=== PATIENT | female | born 1960 | race Caucasian/White ===

== ENCOUNTER 2021-07-01 15:52 | Inpatient (IN) | payer OTHER, SELFPAY ==
[~2021-07-01] VITALS: Ht 170.2 cm; Wt 112.9 kg
[2021-07-01 15:55] VITALS: BP_SYST 98
--- NOTE | 2021-07-01 16:00 | NUR ---
TRIAGED IN OUTSIDE TRIAGE TENT, AWAITING ER BED AVAILABILITY
--- NOTE | 2021-07-01 16:11 | NUR ---
PT BROUGHT IN BY WHEELCHAIR, PLACED IN ROOM #4
[2021-07-01] MEDS ORDERED: NACL 0.9% 1,000 ML IV ONE (16:30)
--- NOTE | 2021-07-01 17:02 | NUR ---
61 YEARS OLD FEMALE ALERT, ORIENTED X4 PRESENTS TO ER WITH GEN WEAKNESS, DENIES PAIN NO SOB NO CP.
[2021-07-01 17:40] LABS: BASOPHILS % (AUTO) 0.2 % (0.0-2.0); EOSINOPHILS % (AUTO) 0.1 % (0.0-4.0); HEMATOCRIT 40.2 % (36-48); HEMOGLOBIN 13.4 g/dL (12.0-16.0); LYMPHOCYTES # (AUTO) 0.4 K/uL (1.0-5.5); LYMPHOCYTES % (AUTO) 9.6 % (20.5-51.5); MEAN CORPUSCULAR HEMOGLOBIN 30 pg (27-31); MEAN CORPUSCULAR HGB CONC 33 % (32-36); MEAN CORPUSCULAR VOLUME 89 fL (79.0-98.0); MONOCYTES # (AUTO) 0.5 K/uL (0.0-1.0); MONOCYTES % (AUTO) 10.7 % (1.7-9.3); NEUTROPHILS # (AUTO) 3.6 K/uL (1.8-7.7); NEUTROPHILS % (AUTO) 79.4 % (40.0-70.0); PLATELET COUNT (AUTO) 160 K/uL (130-430); RED BLOOD CELL COUNT(AUTO) 4.54 MIL/uL (4.2-6.2); RED CELL DISTRIBUTION WIDTH 12.6 % (9.0-15.0); WHITE BLOOD COUNT (AUTO) 4.5 K/uL (4.8-10.8)
[2021-07-01 18:06] LABS: CALCIUM 8.4 mg/dL (8.4-11.0); CREATININE 1.4 mg/dL (0.55-1.30)
--- NOTE | 2021-07-01 18:08 | NUR ---
PATIENT RESTING NO ACUTE DISTRESS VITAL STABLE.
[2021-07-01 18:23] LABS: ALBUMIN 2.2 g/dL (3.4-4.8); TOTAL BILIRUBIN 0.7 mg/dL (0.0-1.0)
--- NOTE | 2021-07-01 18:27 | NUR ---
CABLE MAKER REPORTS COVID POSITIVE DR EMMANUEL NOTIFIED.
[2021-07-01] MEDS ORDERED: cefTRIAXone 1 GM IVPB PREMIX 50 ML IV ONE (19:00)
[2021-07-01] MEDS ORDERED: AZITHROMYCIN 250 MG TABLET PO ONE (19:00)
[2021-07-01] MEDS ORDERED: INSULIN REGULAR, HUMAN 10 UNITS/0.1 ML INJ IVP ONE (19:00)
[2021-07-01] MEDS ORDERED: ENOXAPARIN SODIUM 120 MG/0.8 ML SYRINGE SUBCUT ONE (19:30)
[2021-07-01] MEDS ORDERED: ASPIRIN 325 MG TABLET PO ONE (19:30)
--- NOTE | 2021-07-01 19:47 | NUR ---
S/W lab for critical lab Troponin of 99 made aware
--- NOTE | 2021-07-01 19:52 | NUR ---
Received report from Registry 68 pt resting comfortably in bed AOX4 VSS NAD at this time Will continue to monitor
--- NOTE | 2021-07-01 19:54 | NUR ---
S/W Marlon from Lab for Critical troponin value 99 made aware
--- NOTE | 2021-07-01 20:54 | NUR ---
Patient will be admitted to care of Dr. Mar. Admitted to tele unit.
[2021-07-01] MEDS ORDERED: ENOXAPARIN SODIUM 120 MG/0.8 ML SYRINGE ONE (22:19)
[2021-07-01] MEDS ORDERED: ASPIRIN 325 MG TABLET ONE (22:19)
--- NOTE | 2021-07-01 22:38 | NUR ---
CONSULTATION PAGED/CALLED Reason for Consultation: COVID PNA Person Who was Notified: SAEID Consulting Physician: HUGO Glucose And Syrup Weigher Specialty: RESPIRATORY Ordering Physician: HENRY
[2021-07-01] MEDS ORDERED: ACETAMINOPHEN 325 MG TABLET PO PRN (22:45)
--- NOTE | 2021-07-01 22:46 | NUR ---
Admitted to telemetry unit. Will go to room 118b. Belongings list completed. Complete and up to date summary report printed. SBAR report to be given at bedside with opportunity for questions. AOX4 VSS RN at bedside
--- NOTE | 2021-07-01 22:48 | NUR ---
RECEIVED PT FR ED VIA [facility]. ED NURSE GEORGE LOGAN GAVE REPORT VIA BEDSIDE. ADMISSION ASSESSMENT PERFORMED. THROUGH HEAD TO TOE ASSESSMENT DONE. PT IS AWAKE,ALERT & ORIENTED X 4. NOT IN ANY ACUTE DISTRESS/SOB. RESP EVEN & UNLABORED. AFEBRILE. DENIES PAIN. PT IS COVID +, ON DROPLET PRECAUTIONS OBSERVED & PRACTICED. W/ 20G IV SL ON LEFT HAND INTACT & PATENT. B & B CONTINENT. ABLE TO AMBULATE W/ ASSISTIVE DEVICE (CANE) BUT DUE TO GENERALIZED WEAKNESS, BEDSIDE COMMODE PROVIDED AND INDIVIDUALIZED FALL PREVENTION INITIATED. SAFE & HAZARD FREE ENVIRONMENT PROVIDED. SKIN IS INTACT. PER PT, EMERGENCY CONTACT IS HER SPOUSE WHICH IS ALSO ADMITTED IN THE SAME UNIT, DIFFERENT ROOM#. INFORMED PT THAT SPUTUM SPECIMEN NEEDS TO BE COLLECTED. PT HASN'T BEEN ABLE TO COUGH UP ANY SECRETIONS AT THE MOMENT. WILL CON'T TO MONITOR. HOME MEDS INFORMATION OBTAINED FROM PATIENT.BELONGINGS INVENTORY DONE. ORIENTED TO ROOM, BED CONTROLS AND EQUIPMENT & USE OF CALL LIGHT. NEEDS ANTICIPATED. PT MADE COMFORTABLE. CALL LIGHT W/IN EASY REACH.
--- NOTE | 2021-07-01 22:59 | NUR ---
CONSULTATION PAGED/CALLED Reason for Consultation: ELEVATED TROPONIN Person Who was Notified: FLORENTINO Consulting Physician: STEPHANIE Marketing Automation Specialist Specialty: CARDIOLOGY Ordering Physician: HENRY
[2021-07-01] MEDS ORDERED: ALBUTEROL SULFATE 0.083% 2.5 MG/3 ML VIAL.NEB INH SCH (23:00)
[2021-07-01] MEDS ORDERED: IPRATROPIUM BROM 0.5 MG/2.5 ML VIAL.NEB (ATROVENT) INH SCH (23:00)
--- NOTE | 2021-07-01 23:04 | NUR ---
CONSULTATION PAGED/CALLED Reason for Consultation: COVID Person Who was Notified: YADIEL Consulting Physician: MARY Match Up Person Specialty: ID Ordering Physician: HENRY
--- NOTE | 2021-07-01 23:05 | NUR ---
CONSULTATION PAGED/CALLED Reason for Consultation: GLEN Person Who was Notified: YADIEL Consulting Physician: LEOBARDO Machine Records Units Supervisor Specialty: RENAL Ordering Physician: HENRY
[2021-07-02] VITALS (7 sets, daily range): BP systolic 129–144
[2021-07-02] MEDS: DEXAMETHASONE SOD PHOSPHATE 10 MG/ML VIAL IVP SCH ×2 (00:40→23:41)
[2021-07-02] MEDS ORDERED: AMLO-61 PO (02:26)
[2021-07-02] MEDS ORDERED: LISI40TA13 PO (02:26)
[2021-07-02] MEDS ORDERED: SERT-436 PO (02:26)
[2021-07-02] MEDS ORDERED: PRAV10TA PO (02:26)
[2021-07-02] MEDS ORDERED: INSNLG7030 SUBCUT (02:26)
[2021-07-02] MEDS ORDERED: NEU300 PO (02:26)
[2021-07-02] MEDS ORDERED: SSREG SUBCUT (02:29)
[2021-07-02] MEDS ORDERED: NORMAL SALINE 5 ML DISP.SYRIN IVF SCH (06:00)
[2021-07-02] MEDS: NORMAL SALINE 5 ML DISP.SYRIN IVF SCH ×3 (06:02→22:09)
--- NOTE | 2021-07-02 06:35 | NUR ---
BLOOD SUGAR CHECKED 452 MG/DL.PT IS AWAKE,ALERT & ORIENTED X 4 & NO OBVIOUS SIGNS OF HIGH BLOOD SUGAR. NO POLYDIPSIA, POLYPHAGIA, POLYURIA. ZECHARIAH REGALADO.
--- NOTE | 2021-07-02 06:45 | NUR ---
0645 DR FIGUEROA CALLED BACK W/ NEW ORDER TO ADMINISTER HUMULIN R INSULIN PER SLIDING SCALE. SO 10UNITS FOR BS= 452MG/DL NOTED & CARRIED.
[2021-07-02 06:50] LABS: BASOPHILS % (AUTO) 0.6 % (0.0-2.0); HEMATOCRIT 38.6 % (36-48); HEMOGLOBIN 13.1 g/dL (12.0-16.0); LYMPHOCYTES # (AUTO) 0.3 K/uL (1.0-5.5); LYMPHOCYTES % (AUTO) 8.2 % (20.5-51.5); MEAN CORPUSCULAR HEMOGLOBIN 30 pg (27-31); MEAN CORPUSCULAR HGB CONC 34 % (32-36); MEAN CORPUSCULAR VOLUME 89 fL (79.0-98.0); MONOCYTES # (AUTO) 0.2 K/uL (0.0-1.0); NEUTROPHILS # (AUTO) 3.6 K/uL (1.8-7.7); NEUTROPHILS % (AUTO) 86.2 % (40.0-70.0); PLATELET COUNT (AUTO) 164 K/uL (130-430); RED BLOOD CELL COUNT(AUTO) 4.35 MIL/uL (4.2-6.2); RED CELL DISTRIBUTION WIDTH 12.6 % (9.0-15.0); WHITE BLOOD COUNT (AUTO) 4.2 K/uL (4.8-10.8)
[2021-07-02 07:12] LABS: C-REACTIVE PROTEIN QUANT 11.8 mg/dL (0-0.5); CALCIUM 8.3 mg/dL (8.4-11.0); CREATININE 1.25 mg/dL (0.55-1.30); PHOSPHORUS 2.8 mg/dL (2.7-4.5); POTASSIUM 4.2 mmol/L (3.5-5.1); TOTAL BILIRUBIN 0.5 mg/dL (0.0-1.0)
[2021-07-02] MEDS: INSULIN REGULAR, HUMAN 100 UNITS/ML, 10 ML VIAL (humuLIN R) SUBCUT PRN ×3 (07:14→17:53)
[2021-07-02] MEDS ORDERED: DEXTROSE 50%-WATER 50 ML DISP.SYRIN IVP PRN (07:15)
[2021-07-02] MEDS ORDERED: D5W 1,000 ML IV PRN (07:15)
[2021-07-02] MEDS ORDERED: GLUCOSE (DEXTROSE) ORAL GEL -Adults PO PRN (07:15)
--- NOTE | 2021-07-02 07:25 | NUR ---
0647started calling pharmacy to verify insulin orders but in house pharmacy not picking up. 0649 called pharmacy after hrs and spoke w/ Armen and according to him, he could not be of any help and he can't verify the order coz they're only operation until 6:30 am and i would have to contact inhouse pharmacy. 0650 my colleagues and I have been trying to contact pharmacy but not picking up. 0703 pharmacy finally picked up and verified insulin orders administered 12units as ordered. pt still awake,alert & oriented x 4. endorsed to upcoming shift.
[2021-07-02] MEDS: ENOXAPARIN SODIUM 40 MG/0.4 ML SYRINGE SUBCUT SCH (08:40)
[2021-07-02] MEDS: ALBUTEROL MDI INHALATION 8 GM INH INH SCH ×2 (11:45→16:00)
[2021-07-02 15:15] LABS: ERYTHROCYTE SEDIMENTATION RATE 81 MM/HR (0-20)
[2021-07-02] MEDS: GABAPENTIN 300 MG CAPSULE PO SCH ×2 (15:42→21:00)
--- NOTE | 2021-07-02 16:51 | NUR ---
CONSULTATION: REASON FOR CONSULT: ELEVATED BLOOD SUGAR CONSULTING PHYSICIAN: SALVADOR-SAYED ORDERED BY: MARK SPOKE TO DR FRANCO-SAYED ABOUT THE CONSULT AND IS AWARE AND WILL STOP BYE TO SEE THE PATIENT
--- NOTE | 2021-07-02 19:50 | NUR ---
Didn't get the full report form the previous shift since this wasn't the assisgned room for my shift. Pt is alert and oriented x 4. Patient complained about episode of coughing and some chest pain.
--- NOTE | 2021-07-02 20:50 | NUR ---
input the insulin sliding scale on the system and the long acting in the system
[2021-07-02] MEDS: cefTRIAXone 1 GM IVPB PREMIX 50 ML IV SCH (20:51)
[2021-07-02] MEDS: ASCORBIC ACID 500 MG TABLET PO SCH (21:00)
[2021-07-02] MEDS: AZITHROMYCIN 500 MG in NS 250 ML IV SCH (21:24)
[2021-07-02] MEDS: ONDANSETRON HCL 4 MG/2 ML VIAL IVP PRN (21:43)
[2021-07-02] MEDS: INSULIN GLARGINE 100 UNITS/ML 10 ML VIAL SUBCUT SCH (22:05)
--- NOTE | 2021-07-02 23:15 | NUR ---
Patient was complaining about being hungry, sandwich and a small pudding was given. Pt was ate most of it.
[2021-07-03] VITALS: BP_SYST 146
--- NOTE | 2021-07-03 04:08 | NUR ---
came to patient room check vital sign Bp 136/64 pulse is 98 T 97.2 o2 98 and RR18 patient is resting. No sign of distress.
[2021-07-03] MEDS: NORMAL SALINE 5 ML DISP.SYRIN IVF SCH ×3 (04:26→21:03)
--- NOTE | 2021-07-03 06:00 | NUR ---
Pt blood sugar at 0600 was [address]. I notified the DR. MARIA GUADALUPE Navarro AL-SAYED for the BS result and waiting to response. please follow up
[2021-07-03] MEDS: INSULIN LISPRO SLIDING SCALE 100 UNITS/ML VIAL (humaLOG) SUBCUT PRN ×4 (06:28→21:26)
[2021-07-03] MEDS: INSULIN Lispro 100 UNITS/ML VIAL (humaLOG) SUBCUT SCH ×3 (06:42→17:21)
--- NOTE | 2021-07-03 06:59 | NUR ---
Patient still concerns about the non productive coughing and found no meds on the mars, please follow up with
[2021-07-03] MEDS: BUDESONIDE 0.5 MG/2 ML AMPUL.NEB INH SCH (07:00)
[2021-07-03] MEDS: ALBUTEROL MDI INHALATION 8 GM INH INH SCH ×5 (07:25→23:00)
[2021-07-03 08:00] VITALS: BP_SYST 144
[2021-07-03] MEDS: ATORVASTATIN 20 MG TABLET PO SCH (08:25)
[2021-07-03] MEDS: SERTRALINE HCL 50 MG TABLET PO SCH (08:25)
[2021-07-03] MEDS: ASPIRIN 81 MG TAB.CHEW PO SCH (08:25)
[2021-07-03] MEDS: ASCORBIC ACID 500 MG TABLET PO SCH ×2 (08:25→21:02)
[2021-07-03] MEDS: ENOXAPARIN SODIUM 40 MG/0.4 ML SYRINGE SUBCUT SCH (08:26)
[2021-07-03] MEDS: CHOLECALCIFEROL (VITAMIN D3) 5,000 UNIT TABLET PO SCH (08:26)
[2021-07-03] MEDS: GABAPENTIN 300 MG CAPSULE PO SCH ×3 (08:26→21:02)
[2021-07-03] MEDS: INSULIN GLARGINE 100 UNITS/ML 10 ML VIAL SUBCUT SCH ×2 (08:27→21:34)
[2021-07-03] MEDS ORDERED: PRAVASTATIN SODIUM 10 MG TABLET (PRAVACHOL) PO SCH (09:00)
[2021-07-03] MEDS ORDERED: NITROGLYCERIN 0.4 MG TAB.SUBL SL PRN (09:45)
[2021-07-03] MEDS ORDERED: guaiFENesin/DEXTROMETHORPHAN 1 EACH TAB.ER.12H PO ONE (10:30)
[2021-07-03 10:44] LABS: POTASSIUM 3.4 mmol/L (3.5-5.1)
[2021-07-03 10:45] LABS: CALCIUM 8.6 mg/dL (8.4-11.0); CREATININE 1.15 mg/dL (0.55-1.30)
--- NOTE | 2021-07-03 10:48 | NUR ---
PAGED DR BROWN FOR TROPONIN LEVEL
[2021-07-03] MEDS ORDERED: POTASSIUM CHLORIDE 20 MEQ TAB.PRT.SR PO ONE (11:00)
[2021-07-03 12:00] VITALS: BP_SYST 136
[2021-07-03 13:21] LABS: HEMATOCRIT 38.7 % (36-48); HEMOGLOBIN 13.2 g/dL (12.0-16.0); RED BLOOD CELL COUNT(AUTO) 4.41 MIL/uL (4.2-6.2)
[2021-07-03 13:22] LABS: BASOPHILS % (AUTO) 0.3 % (0.0-2.0); LYMPHOCYTES # (AUTO) 0.3 K/uL (1.0-5.5); LYMPHOCYTES % (AUTO) 9.4 % (20.5-51.5); MEAN CORPUSCULAR HEMOGLOBIN 30 pg (27-31); MEAN CORPUSCULAR HGB CONC 34 % (32-36); MEAN CORPUSCULAR VOLUME 88 fL (79.0-98.0); MONOCYTES # (AUTO) 0.1 K/uL (0.0-1.0); MONOCYTES % (AUTO) 2.7 % (1.7-9.3); NEUTROPHILS # (AUTO) 3.1 K/uL (1.8-7.7); NEUTROPHILS % (AUTO) 87.6 % (40.0-70.0); PLATELET COUNT (AUTO) 210 K/uL (130-430)
[2021-07-03] MEDS ORDERED: INSULIN NPH 100 UNITS/ML 10 ML VIAL SUBCUT ONE (13:30)
[2021-07-03 13:41] LABS: WHITE BLOOD COUNT (AUTO) 3.5 K/uL (4.8-10.8)
[2021-07-03 16:00] VITALS: BP_SYST 130
[2021-07-03 20:00] VITALS: BP_SYST 134
[2021-07-03] MEDS: cefTRIAXone 1 GM IVPB PREMIX 50 ML IV SCH (21:01)
[2021-07-03] MEDS: AZITHROMYCIN 500 MG in NS 250 ML IV SCH (21:01)
[2021-07-03] MEDS: ONDANSETRON HCL 4 MG/2 ML VIAL IVP PRN (21:04)
[2021-07-03] MEDS: guaiFENesin/DEXTROMETHORPHAN 1 EACH TAB.ER.12H PO SCH (21:38)
[2021-07-03] MEDS: DEXAMETHASONE SOD PHOSPHATE 10 MG/ML VIAL IVP SCH (22:42)
[2021-07-04] MEDS: LORazepam 2 MG/ML VIAL IVP PRN ×2 (00:23→23:32)
[2021-07-04 01:50] VITALS: BP_SYST 127
[2021-07-04] MEDS: ALBUTEROL MDI INHALATION 8 GM INH INH SCH ×6 (03:00→22:19)
[2021-07-04] MEDS: NORMAL SALINE 5 ML DISP.SYRIN IVF SCH ×3 (06:00→22:00)
[2021-07-04] MEDS: BUDESONIDE 0.5 MG/2 ML AMPUL.NEB INH SCH ×2 (07:00→19:00)
--- NOTE | 2021-07-04 07:18 | NUR ---
Assumed care last night. A/O x 4. On room air. Satig well above 94%. Antibiotics given. BG checked and treated per MD orders. A snack provided. A little anxious. Ativan given. Did not want to receive breathing treatment thereafter till in the morning. She wanted to sleep in. Request was honored. RT notified not to go in. Care has been endorsed to AM RN.
[2021-07-04 08:00] VITALS: BP_SYST 143
--- NOTE | 2021-07-04 08:00 | NUR ---
Morning Notes: Pt A/Ox4 resting in bed. NO s/s of respiratory or cardiac distress. IV site clean, dry and intact. VVS, Fall, safety, and isolation precautions in place, call light with in reach, will continue to monitor.
[2021-07-04] MEDS: INSULIN Lispro 100 UNITS/ML VIAL (humaLOG) SUBCUT SCH ×3 (09:10→17:12)
[2021-07-04] MEDS: INSULIN LISPRO SLIDING SCALE 100 UNITS/ML VIAL (humaLOG) SUBCUT PRN ×3 (09:11→17:20)
[2021-07-04] MEDS: ENOXAPARIN SODIUM 40 MG/0.4 ML SYRINGE SUBCUT SCH (09:13)
[2021-07-04] MEDS: INSULIN GLARGINE 100 UNITS/ML 10 ML VIAL SUBCUT SCH ×2 (09:13→21:57)
[2021-07-04] MEDS: guaiFENesin/DEXTROMETHORPHAN 1 EACH TAB.ER.12H PO SCH ×2 (09:14→21:44)
[2021-07-04] MEDS: SERTRALINE HCL 50 MG TABLET PO SCH (09:15)
[2021-07-04] MEDS: CHOLECALCIFEROL (VITAMIN D3) 5,000 UNIT TABLET PO SCH (09:15)
[2021-07-04] MEDS: ATORVASTATIN 20 MG TABLET PO SCH (09:15)
[2021-07-04] MEDS: ASPIRIN 81 MG TAB.CHEW PO SCH (09:15)
[2021-07-04] MEDS: GABAPENTIN 300 MG CAPSULE PO SCH ×3 (09:16→21:44)
[2021-07-04] MEDS: ASCORBIC ACID 500 MG TABLET PO SCH ×2 (09:16→21:44)
--- NOTE | 2021-07-04 09:36 | NUR ---
Page AL-Sayed: Paged Dr. Saucedo-Sayed for BG of 408. Pt VVS, no s/s of distress. Gave scheduled Humalog 5 units and Lantus 30 units, and covered with 12 units Humalog.
[2021-07-04 10:17] LABS: CALCIUM 8.9 mg/dL (8.4-11.0); CREATININE 1.17 mg/dL (0.55-1.30)
[2021-07-04 10:22] LABS: BASOPHILS # (AUTO) 0.1 K/uL (0.0-0.2); BASOPHILS % (AUTO) 1.4 % (0.0-2.0); EOSINOPHILS % (AUTO) 0.5 % (0.0-4.0); HEMATOCRIT 40.5 % (36-48); HEMOGLOBIN 13.5 g/dL (12.0-16.0); LYMPHOCYTES # (AUTO) 0.3 K/uL (1.0-5.5); LYMPHOCYTES % (AUTO) 5.5 % (20.5-51.5); MEAN CORPUSCULAR HEMOGLOBIN 30 pg (27-31); MEAN CORPUSCULAR HGB CONC 33 % (32-36); MEAN CORPUSCULAR VOLUME 89 fL (79.0-98.0); MONOCYTES # (AUTO) 0.1 K/uL (0.0-1.0); MONOCYTES % (AUTO) 2.6 % (1.7-9.3); PLATELET COUNT (AUTO) 224 K/uL (130-430); RED BLOOD CELL COUNT(AUTO) 4.57 MIL/uL (4.2-6.2); RED CELL DISTRIBUTION WIDTH 12.7 % (9.0-15.0)
[2021-07-04 10:43] LABS: WHITE BLOOD COUNT (AUTO) 5.5 K/uL (4.8-10.8)
[2021-07-04 10:55] LABS: C-REACTIVE PROTEIN QUANT 4.1 mg/dL (0-0.5)
[2021-07-04] MEDS ORDERED: INSULIN NPH 100 UNITS/ML 10 ML VIAL SUBCUT ONE (11:00)
[2021-07-04 11:31] LABS: ERYTHROCYTE SEDIMENTATION RATE 73 MM/HR (0-20)
--- NOTE | 2021-07-04 11:55 | NUR ---
Nutrition Update Josiah Scale 15 noted. Pt admitted for COVID, pneumonia. Diet: cardiac BMI: 39 kg/m2 RD to follow per nutrition care standards.
[2021-07-04 12:00] VITALS: BP_SYST 126
--- NOTE | 2021-07-04 13:01 | NUR ---
Page Dr. Saucedo-Sayed: Paged Dr. DelarosaSayed for BG of 533, gave ordered Humulin N 30 units, and gave Humalog 10 units, and Humalog 12 units of coverage.
[2021-07-04 16:00] VITALS: BP_SYST 138
--- NOTE | 2021-07-04 18:56 | NUR ---
Closing notes: Pt A/Ox4 resting in bed. NO s/s of respiratory or cardiac distress. IV site clean, dry and intact. VVS, Fall, safety, and isolation precautions in place, call light with in reach, will endorse to plastic fixture builder.
--- NOTE | 2021-07-04 19:40 | NUR ---
Assumed care. A/O x 4. BG have remained high for the most of the day. Adjustments in insulin administration has been made y the paperhanger apprentice. We shall govern ourselves accordingly adhering to the set plan of treatment. Will be administering the antibiotics in a few minutes.
--- NOTE | 2021-07-04 19:43 | NUR ---
Dietitian Recommendations * Cardiac, CCHO standard carb-60 gm diet SARWAT, RD Please refer to Nutrition Assessment for details. Addendum: 07/04/21 at [address] Amended: Links added.
[2021-07-04 20:00] VITALS: BP_SYST 142
[2021-07-04] MEDS: cefTRIAXone 1 GM IVPB PREMIX 50 ML IV SCH (21:43)
[2021-07-04] MEDS: AZITHROMYCIN 500 MG in NS 250 ML IV SCH (21:44)
[2021-07-04] MEDS: DEXAMETHASONE SOD PHOSPHATE 10 MG/ML VIAL IVP SCH (22:18)
[2021-07-05] VITALS (9 sets, daily range): BP systolic 129–176
[2021-07-05] MEDS: ALBUTEROL MDI INHALATION 8 GM INH INH SCH ×5 (02:59→19:47)
--- NOTE | 2021-07-05 03:41 | NUR ---
Assumed care. A/O x 4. On telemetry. SR. In no acute distress respiratory or otherwise. All PM were administered. Blood glucose = 105. No coverage needed. Lantus 45 units have been given. A snack has been given. Snack has been consumed 100%. Will continue to monitor. She has requested to be assisted to the bathroom not so long ago. Bed linens have been changed. Gown has been changed. Pillow cases have been changed. She has requested for a sandwich. Prior to giving it to her, BG checked = 108. Will continue to monitor.
[2021-07-05] MEDS: NORMAL SALINE 5 ML DISP.SYRIN IVF SCH ×2 (05:23→12:01)
[2021-07-05] MEDS: INSULIN Lispro 100 UNITS/ML VIAL (humaLOG) SUBCUT SCH ×3 (07:00→16:49)
[2021-07-05] MEDS: BUDESONIDE 0.5 MG/2 ML AMPUL.NEB INH SCH (07:00)
[2021-07-05 08:10] LABS: BASOPHILS % (AUTO) 0.2 % (0.0-2.0); EOSINOPHILS % (AUTO) 0.1 % (0.0-4.0); HEMATOCRIT 35.3 % (36-48); LYMPHOCYTES # (AUTO) 0.6 K/uL (1.0-5.5); LYMPHOCYTES % (AUTO) 7.5 % (20.5-51.5); MEAN CORPUSCULAR HEMOGLOBIN 30 pg (27-31); MEAN CORPUSCULAR HGB CONC 34 % (32-36); MEAN CORPUSCULAR VOLUME 88 fL (79.0-98.0); MONOCYTES # (AUTO) 0.3 K/uL (0.0-1.0); MONOCYTES % (AUTO) 3.5 % (1.7-9.3); NEUTROPHILS # (AUTO) 6.6 K/uL (1.8-7.7); NEUTROPHILS % (AUTO) 88.7 % (40.0-70.0); PLATELET COUNT (AUTO) 225 K/uL (130-430); RED BLOOD CELL COUNT(AUTO) 4.01 MIL/uL (4.2-6.2); RED CELL DISTRIBUTION WIDTH 12.8 % (9.0-15.0)
[2021-07-05 08:12] LABS: ALBUMIN 1.9 g/dL (3.4-4.8); C-REACTIVE PROTEIN QUANT 2.2 mg/dL (0-0.5); CALCIUM 8.3 mg/dL (8.4-11.0); CREATININE 1.16 mg/dL (0.55-1.30); POTASSIUM 4.2 mmol/L (3.5-5.1); TOTAL BILIRUBIN 0.3 mg/dL (0.0-1.0)
[2021-07-05] MEDS: INSULIN GLARGINE 100 UNITS/ML 10 ML VIAL SUBCUT SCH (08:23)
[2021-07-05] MEDS: ATORVASTATIN 20 MG TABLET PO SCH (08:38)
[2021-07-05] MEDS: GABAPENTIN 300 MG CAPSULE PO SCH ×2 (08:38→14:21)
[2021-07-05] MEDS: CHOLECALCIFEROL (VITAMIN D3) 5,000 UNIT TABLET PO SCH (08:38)
[2021-07-05] MEDS: SERTRALINE HCL 50 MG TABLET PO SCH (08:38)
[2021-07-05] MEDS: ASCORBIC ACID 500 MG TABLET PO SCH (08:38)
[2021-07-05] MEDS: ASPIRIN 81 MG TAB.CHEW PO SCH (08:38)
[2021-07-05] MEDS: guaiFENesin/DEXTROMETHORPHAN 1 EACH TAB.ER.12H PO SCH (08:38)
[2021-07-05] MEDS: ENOXAPARIN SODIUM 40 MG/0.4 ML SYRINGE SUBCUT SCH (08:43)
[2021-07-05 09:44] LABS: WHITE BLOOD COUNT (AUTO) 7.5 K/uL (4.8-10.8)
[2021-07-05 11:03] LABS: ERYTHROCYTE SEDIMENTATION RATE 60 MM/HR (0-20)
[2021-07-05] MEDS: INSULIN LISPRO SLIDING SCALE 100 UNITS/ML VIAL (humaLOG) SUBCUT PRN (12:01)
--- NOTE | 2021-07-05 14:35 | NUR ---
Note Pt went to MRI dept for MRI of head/brain via wheelchair, now back in room.
[2021-07-05] MEDS ORDERED: APIX2.5T PO (15:19)
[2021-07-05] MEDS ORDERED: DEC1 PO (15:19)
--- NOTE | 2021-07-05 15:38 | NUR ---
Note Pt was informed by RN that there is discharge order for pt to go home today. Pt states she cannot go home alone, needs her at home with her ( inpatient here at this time). Dr Martinez paged to notify of this matter.
--- NOTE | 2021-07-05 18:00 | NUR ---
NOTE Pt was checked on q1' and PRN all shift. pt's bed in low position and bed alarm on all shift. Pt ambulated to restroom independently with steady gait. Pt was maintained with safety and isolation precautions all shift. Pt was given discharge instructions and questions/concerns were answered. Pt stable at this time. Call light within reach. No needs noted. Pt has been on room air all shift with O2 sats of 95%. Addendum: 07/05/21 at 1809 by Natalya Cordero RN pt's tele unit attached and intact all shift. Pt's IV in left hand intact and patent.
[2021-07-05] MEDS ORDERED: INSULIN GLARGINE 100 UNITS/ML 10 ML VIAL SUBCUT SCH (21:00)
--- NOTE | 2021-07-05 21:41 | NUR ---
D/C Patient Patient given medication reconciliation form and D/C instructions. Exit Care provided. Patient verbalized understanding. MD discussed with patient the results and treatment provided. Ambulatory with steady gait for discharge to home. Patient in stable condition, ID band removed. IV catheter removed, intact and dressing applied, no active bleeding. Rx of given. Patient educated on pain management. All belongings sent with patient.
== END 2021-07-05 21:41 | disposition home or self-care (01) | DRG 871 ==
LOC: SED 15:52 → STU 20:38
PROVIDERS: ADMIT Internal Medicine Hospice and Palliative Medicine; ATTEND Internal Medicine Hospice and Palliative Medicine
DX: A41.89 Other specified sepsis (principal); U07.1 COVID-19; J12.82 Pneumonia due to coronavirus disease 2019; J96.01 Acute respiratory failure with hypoxia; E87.1 Hypo-osmolality and hyponatremia; N17.9 Acute kidney failure, unspecified; I24.8 Other forms of acute ischemic heart disease; E11.65 Type 2 diabetes mellitus with hyperglycemia; E78.5 Hyperlipidemia, unspecified; F10.20 Alcohol dependence, uncomplicated; F32.A Depression, unspecified; I12.9 Hypertensive chronic kidney disease with stage 1 through stage 4 chronic kidney disease, or unspecified chronic kidney disease; E11.22 Type 2 diabetes mellitus with diabetic chronic kidney disease; N18.9 Chronic kidney disease, unspecified; E88.09 Other disorders of plasma-protein metabolism, not elsewhere classified; E66.01 Morbid (severe) obesity due to excess calories; Z88.6 Allergy status to analgesic agent; Z90.49 Acquired absence of other specified parts of digestive tract; Z79.4 Long term (current) use of insulin; Z79.899 Other long term (current) drug therapy; Z68.39 Body mass index [BMI] 39.0-39.9, adult; Z79.01 Long term (current) use of anticoagulants
CPT/HCPCS: 36415; 70551; 71045; 80048; 80053; 82962; 83605; 83735; 83880; 84100; 84484; 85025; 85379; 85651-TC; 86140; 87040; 93005; 93306; 94640; 96361; 96365; 96375; 99285; G0378; J0456; J0696; J1100; J1650; J1815; J2060; J2405; J7050; J7613; Q0144